=== PATIENT | male | born 2000 | race Two or more races ===

== ENCOUNTER 2023-11-11 17:37 | Emergency (ER) | payer OTHER ==
[~2023-11-11] VITALS: Ht 177.8 cm; Wt 100.4 kg
[2023-11-11 20:51] VITALS: BP 159/102; TEMP 97.2; O2SAT 99
== END 2023-11-11 20:57 | disposition home or self-care (01) ==
LOC: M ED 17:37
DX: H11.32 Conjunctival hemorrhage, left eye (principal)